=== PATIENT | female | born 2000 | race Caucasian/White ===

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

== ENCOUNTER 2022-01-25 16:27 | Emergency (ER) | payer MEDICAID, SELFPAY ==
[2022-01-25 16:35] VITALS: BP 131/89; PULSE 71; RESP 18; TEMP 36.6; O2SAT 98; BMI 27.1
--- NOTE | 2022-01-25 17:22 | CTR_ITS ---
PROCEDURE INFORMATION: Exam: CT Abdomen And Pelvis With Contrast Exam date and time: 01/25/2022 7:21 PM Age: 21 years old Clinical indication: Abdominal pain; Generalized; Patient HX: Lower sharp abd pain with shooting pain down right leg TECHNIQUE: Imaging protocol: Computed tomography of the abdomen and pelvis with contrast. Sagittal and coronal reformatted images were created and reviewed. Radiation optimization: All CT scans at this facility use at least one of these dose optimization techniques: automated exposure control; mA and/or kV adjustment per patient size (includes targeted exams where dose is matched to clinical indication); or iterative reconstruction. Contrast material: OMNI 300; Contrast volume: 95 ml; Contrast route: INTRAVENOUS (IV); COMPARISON: No relevant prior studies available. RADIATION DOSE METRICS: Total DLP (mGy-cm): 1468.63 FINDINGS: Lungs: Visualized lungs are clear. Pleural spaces: No pleural effusion. Heart: Visualized portions of the heart are unremarkable. Liver: The liver is unremarkable. Gallbladder and bile ducts: The gallbladder is unremarkable. No biliary ductal dilatation. Pancreas: The pancreas is unremarkable. No pancreatic ductal dilatation. Spleen: The spleen is unremarkable. Adrenal glands: The right and left adrenal glands are unremarkable. Kidneys and ureters: The right and left kidneys are unremarkable. The right and left ureters are unremarkable. Stomach and bowel: No obstruction. No mucosal thickening. Appendix: The appendix is visualized and is unremarkable. No findings to suggest acute appendicitis. Intraperitoneal space: No free intraperitoneal air. No ascites. No loculated fluid collections to suggest an abscess. Vasculature: No evidence for aortic aneurysm or aortic dissection. Hepatic veins, portal veins, splenic vein, and SMV are patent. Incidental note of a retroaortic left renal vein. Lymph nodes: No lymphadenopathy. Urinary bladder: The bladder is unremarkable. Reproductive: There is a tampon in the vagina. The uterus is unremarkable. Multiple subcentimeter follicles in both right and left ovaries. Bones/joints: No acute fracture. Soft tissues: The extra-abdominal soft tissues are unremarkable. CT/CT abdomen pelvis w con* [id number] IMPRESSION: 1. No acute abnormality in the abdomen or pelvis. 2. Incidental/nonacute findings are listed in the report.
--- NOTE | 2022-01-25 17:26 | ED_ITS ---
Documented by User: Krzysztof Urbano DO 01/26/22 05:51 HPI - Abdominal Pain General: Chief Complaint: Abdominal Pain Stated Complaint: right lower side stomach pain/back pain/leg pain Time Seen by Provider: 01/25/22 17:03 Source: patient Mode of arrival: ambulatory Limitations: no limitations History of Present Illness: 21-year-old female presents emergency room with complaint of abdominal pain refers the pain is right lower quadrant. She is currently on control. She is concerned she may have ovarian cyst she is currently having her period as well. States she is never had cramps like this today. In the past she has loss of appetite as well she denies any fever she did some nausea and vomiting overnight. MD elicited complaint: abdominal pain Onset (ago): hour(s) Pain Consistency: constant Location: RLQ Severity: moderate Quality: cramping Radiation: other (Right upper leg) Exacerbating factors: eating and movement Relieving factors: nothing Associated Symptoms: Reports GI cramping, diarrhea, nausea and poor appetite; Denies anorexia, belching, bloating, change in bowel habits, change in stool character, chills, coffee ground emesis, constipation, dyspepsia, dysuria, excessive flatus, fever(s), heartburn, hematochezia, hematuria, hematemesis, fecal incontinence, loose stools, melena, syncope and vomiting Related Data: Date of Last Menstrual Period: 08/03/21 Review of Systems Const: Denies: fever(s) or chills ENMT: Denies: throat pain, ear or mastoid pain, nasal discharge or nasal congestion Card: Denies: syncope Resp: Denies: dyspnea, productive cough or non-productive cough GI: Reports: nausea, diarrhea and GI cramping; Denies: vomiting, hematemesis, coffee ground emesis, heartburn, constipation, bloating, belching, excessive flatus, fecal incontinence, change in bowel habits, change in stool character, hematochezia or melena : Denies: dysuria or hematuria Skin/Breast: Denies: rash or pruritus [facility] ED PFSH: Medical History (Updated 01/25/22 @ 20:07 by Georgette Benjamin MD) History of asthma Hx of mycoplasma pneumonia Social History Smoking and tobacco status: never smoked Female Reproductive History: Date of last menstrual period: 08/03/21 Physical Exam Const: COMMON NORMALS: no acute distress GENERAL APPEARANCE: cooperative and comfortable ORIENTATION/CONSCIOUSNESS: Yes awake, Yes oriented to person, Yes oriented to place and Yes oriented to time HENMT: COMMON NORMALS: normocephalic, atraumatic and hearing grossly normal bilaterally HEAD & SCALP: normocephalic and atraumatic Neck/C-Spine: COMMON NORMALS: no JVD Resp: COMMON NORMALS: normal respiratory effort, No retractions, No use of accessory muscles and clear to auscultation bilaterally AUSCULTATION: clear to auscultation bilaterally Cardio: COMMON NORMALS: no JVD, regular rate, regular rhythm and No murmurs present (Cardio) RATE: regular rate RHYTHM: regular rhythm GI: COMMON NORMALS: No hepatosplenomegaly present AUSCULTATION: Yes normoactive bowel sounds PALPATION: Yes Tenderness to palpation present (GI) (McBurney's point) Details: RLQ, No Guarding due to palpation present (GI) and Yes No hepatosplenomegaly present : COMMON NORMALS: Yes no CVA tenderness BLADDER/KIDNEY EXAM: Yes no CVA tenderness Back/Pelvis: COMMON NORMALS: no CVA tenderness Extremity: COMMON NORMALS: normal to inspection, capillary refill normal, no clubbing, cyanosis or edema, no calf tenderness and no pedal edema Neuro: SENSORIUM/ORIENTATION: Yes oriented to person, Yes oriented to place and Yes oriented to time Skin: COMMON NORMALS: no rashes or lesions noted GENERAL SKIN EXAM: no rashes or lesions noted Course Vital Signs: Vital signs: Vital Signs Temperature 97.8 F 01/25/22 16:35 Pulse Rate 71 01/25/22 16:35 Respiratory Rate 18 01/25/22 16:35 Blood Pressure 131/89 01/25/22 16:35 Pulse Oximetry 98 01/25/22 16:35 MDM - Abdominal Pain Medical Decision Making Care signed out to Dr. Benjamin at change of shift. See final notes for diagnosis and disposition. Medical Records I reviewed the patient's medical records. Lab Data I reviewed the patient's lab results. : 01/25/22 16:09 01/25/22 16:09 Labs/Radiology: Radiology Impressions Abdomen/Pelvis CT 01/25/22 17:22 IMPRESSION: 1. No acute abnormality in the abdomen or pelvis. 2. Incidental/nonacute findings are listed in the report. Laboratory Results WBC 8.2 10^3/uL (4.5-13.0) 01/25/22 16:09 RBC 5.40 10^6/uL (4.1-5.3) H 01/25/22 16:09 Hgb 16.0 g/dL (11.5-15.3) H 01/25/22 16:09 Hct 46.7 % (37.0-47.0) 01/25/22 16:09 MCV 86.5 fl (81-99) 01/25/22 16:09 MCH 29.6 pg (28.0-34.0) 01/25/22 16:09 MCHC 34.3 g/dL (30.0-36.0) 01/25/22 16:09 RDW 11.7 % (12.1-15.1) L 01/25/22 16:09 Plt Count 387 10^3/cmm (130-400) 01/25/22 16:09 MPV 10.3 fL (7.4-10.4) 01/25/22 16:09 Neut % (Auto) 63.0 % 01/25/22 16:09 Lymph % (Auto) 29.7 % 01/25/22 16:09 [place] % (Auto) 6.3 % 01/25/22 16:09 Eos % (Auto) 0.7 % 01/25/22 16:09 Baso % (Auto) 0.2 % 01/25/22 16:09 Neut # (Auto) 5.14 10^3/uL (1.8-8.0) 01/25/22 16:09 Lymph # (Auto) 2.4 10^3/uL (1.5-6.5) 01/25/22 16:09 [place] # (Auto) 0.5 10^3/uL (0.2-0.9) 01/25/22 16:09 Eos # (Auto) 0.1 10^3/uL (0.0-0.8) 01/25/22 16:09 Baso # (Auto) 0.0 10^3/uL (0.0-0.1) 01/25/22 16:09 Nucleated RBC % (auto) 0 % 01/25/22 16:09 Nucleated RBCs # 0.0 /100WBC 01/25/22 16:09 Sodium 138 mmol/L (136-145) 01/25/22 16:09 Potassium 3.8 mmol/L (3.5-5.1) 01/25/22 16:09 Chloride 102 mmol/L (98-107) 01/25/22 16:09 Carbon Dioxide 21 mmol/L (22-29) L 01/25/22 16:09 Anion Gap 18.8 (5-19) 01/25/22 16:09 BUN 10 mg/dL (6-20) 01/25/22 16:09 Creatinine 0.6 mg/dL (0.5-0.9) 01/25/22 16:09 GFR Calculation 128.8 mL/min (90-130) 01/25/22 16:09 Glucose 86 mg/dL (65-115) 01/25/22 16:09 Calculated Osmolality 284 mOsm/kg (285-295) L 01/25/22 16:09 Calcium 9.9 mg/dL (8.5-10.5) 01/25/22 16:09 Total Bilirubin 0.4 mg/dL (0.15-1.2) 01/25/22 16:09 AST 16 U/L (0-32) 01/25/22 16:09 ALT 15 U/L (0-33) 01/25/22 16:09 Alkaline Phosphatase 53 IU/L (35-105) 01/25/22 16:09 Total Protein 8.2 g/dL (6.6-8.7) 01/25/22 16:09 Albumin 4.9 g/dL (3.5-5.2) 01/25/22 16:09 Globulin 3.3 g/dL (1.3-4.6) 01/25/22 16:09 HCG, Qual Negative (Negative) 01/25/22 16:09 Urine Color Yellow (Yellow) 01/25/22 18:12 Urine Appearance Clear (CLEAR) 01/25/22 18:12 Urine pH 6 (5-7) 01/25/22 18:12 Ur Specific [place] 1.015 (1.005-1.030) 01/25/22 18:12 Urine Protein Neg (Negative) 01/25/22 18:12 Urine Glucose (UA) Norm (Normal) 01/25/22 18:12 Urine Ketones Negative (Negative) 01/25/22 18:12 Urine Blood 2+ (Negative) H 01/25/22 18:12 Urine Nitrate Negative (Negative) 01/25/22 18:12 Urine Bilirubin Neg (Negative) 01/25/22 18:12 Urine Urobilinogen Norm mg/dL (Negative) 01/25/22 18:12 Ur Leukocyte Esterase Negative (Negative) 01/25/22 18:12 Urine RBC 0-4 /hpf (0-2) H 01/25/22 18:12 Urine WBC 0-4 /hpf (0-5) H 01/25/22 18:12 Ur Squamous Epith Cells 0-4 /hpf (0-5) H 01/25/22 18:12 Amorphous Sediment Not Reportable 01/25/22 18:12 Urine Bacteria Trace /hpf (NONE) 01/25/22 18:12 Discharge Plan Discharge Patient Disposition: Home Clinical Impression: Abdominal pain Qualifiers: Abdominal location: generalized Qualified Code(s): R10.84 - Generalized abdominal pain Condition: Stable Prescriptions: New ondansetron 4 mg tablet,disintegrating 4 mg PO Q6H PRN (Reason: nausea and vomiting) Qty: 14 0RF Naprosyn 500 mg tablet 500 mg PO BID PRN (Reason: pain) Qty: 20 0RF No Action hydroxyzine HCl 25 mg tablet 25 mg PO BID PRN (Reason: itching) Qty: 14 0RF albuterol sulfate 90 mcg/actuation HFA aerosol inhaler 2 puff INHALATION Q6H MDD 2 puff every 4 hrs. prn PRN (Reason: shortness of breath or wheezing) Qty: 13.4 1RF epinephrine [EpiPen 2-Jamir] 0.3 mg/0.3 mL auto-injector 0.3 mg IM Q10M PRN (Reason: anaphylaxis) Qty: 2 0RF Rx Instructions: for 2 doses norgestimate-ethinyl estradiol [Sprintec (28)] 0.25-35 mg-mcg tablet 1 tab PO DAILY Qty: 28 5RF Discharge Orders: Discharge ED (Routine); Ordered 01/25/22 Ordered By: Georgette Benjamin Referrals: Karina Messina FNP [Primary Care Provider] - 1-3 days Discharge Diet: Advance as tolerated Discharge Activity: Resume usual activity Patient Instructions: Abdominal Pain (ED) Coding Level of Care Code ED Director Business Systems for Chg Fwd Exam Comprehensive Documented by User: Georgette Benjamin MD 01/25/22 20:11 HPI - Abdominal Pain General: Chief Complaint: Abdominal Pain Stated Complaint: right lower side stomach pain/back pain/leg pain Time Seen by Provider: 01/25/22 17:03 [facility] ED PFSH: Medical History (Updated 01/25/22 @ 20:07 by Georgette Benjamin MD) History of asthma Hx of mycoplasma pneumonia Social History Smoking and tobacco status: never smoked Course Vital Signs: Vital signs: Vital Signs Temperature 97.8 F 01/25/22 16:35 Pulse Rate 71 01/25/22 16:35 Respiratory Rate 18 01/25/22 16:35 Blood Pressure 131/89 01/25/22 16:35 Pulse Oximetry 98 01/25/22 16:35 MDM - Abdominal Pain Medical Decision Making Care signed out to Dr. Benjamin at change of shift. See final notes for diagnosis and disposition. Took patient over at shift change patient's pain here is improved exam at discharge is benign CT scan shows no acute findings patient's blood work here is normal as well she is stable for discharge will place on Naprosyn and Zofran she is to follow-up with PCP and return if worsening she understands agrees to plan. Lab Data : 01/25/22 16:09 01/25/22 16:09 Labs/Radiology: Radiology Impressions Abdomen/Pelvis CT 01/25/22 17:22
[2022-01-25 18:23] LABS: Basophils % 0.2 %; Eosinophils # 0.1 10^3/uL (0.0-0.8); Eosinophils % 0.7 %; Hematocrit 46.7 % (37.0-47.0); Lymphocytes # 2.4 10^3/uL (1.5-6.5); Lymphocytes % 29.7 %; Mean Corpuscular HGB Conc 34.3 g/dL (30.0-36.0); Mean Corpuscular Hemoglobin 29.6 pg (28.0-34.0); Mean Corpuscular Volume 86.5 fl (81-99); Mean Platelet Volume 10.3 fL (7.4-10.4); Monocytes # 0.5 10^3/uL (0.2-0.9); Monocytes % 6.3 %; Neutrophils # 5.14 10^3/uL (1.8-8.0); Nucleated Red Blood Cells % 0 %; Platelet Count 387 10^3/cmm (130-400); Red Cell Distribution Width 11.7 % (12.1-15.1); White Blood Count 8.2 10^3/uL (4.5-13.0)
[2022-01-25 18:31] LABS: Add Urine Microscopic? YES; Bacteria Urine TRACE /hpf; Bilirubin Urine Neg (Negative); Blood Urine 2+ (Negative); Glucose Urine UA Norm (Normal); Ketones Urine Negative (Negative); Leukocyte Esterase Urine Negative (Negative); Nitrate Urine Negative (Negative); Protein Urine Neg (Negative); RBC Urine 0-4 /hpf (0-2); Specific Gravity, Urine 1.015 (1.005-1.030); Squamous Epithelial Cell Urine 0-4 /hpf (0-5); Urine Appearance Clear (CLEAR); Urine Color Yellow (Yellow); Urobilinogen Urine Norm (Negative); WBC Urine 0-4 /hpf (0-5); pH Urine 6 (5-7)
[2022-01-25 18:38] LABS: HCG, Serum Qual Negative (Negative)
[2022-01-25 19:01] LABS: Alanine Aminotransferase 15 U/L (0-33); Albumin Level 4.9 g/dL (3.5-5.2); Alkaline Phosphatase 53 IU/L (35-105); Anion Gap 18.8 (5-19); Aspartate Amino Transferase 16 U/L (0-32); Blood Urea Nitrogen 10 mg/dL (6-20); Calcium 9.9 mg/dL (8.5-10.5); Carbon Dioxide 21 mmol/L (22-29); Chloride 102 mmol/L (98-107); Creatinine Clr Calc Pharmacy 151.8333; Globulin 3.3 g/dL (1.3-4.6); Glomerular Filtration Rate 128.8 mL/min (90-130); Glucose 86 mg/dL (65-115); Osmolality Calculated 284 mOsm/kg (285-295); Potassium 3.8 mmol/L (3.5-5.1); Sodium 138 mmol/L (136-145); Total Bilirubin 0.4 mg/dL (0.15-1.2); Total Protein 8.2 g/dL (6.6-8.7)
--- NOTE | 2022-01-25 19:15 | PC.NURSE ---
REPORT GIVEN TO MIROSLAVA OBANDO ASSUMED CARE.
[2022-01-25] MEDS: iohexol 300 mg/mL 100 mL Btl IV (19:22)
[2022-01-25] MEDS: HYDROcodone-acetaminophen 7.5-325 mg Tablet 1 TAB PO (20:19)
== END 2022-01-25 20:22 | disposition home or self-care (01) ==
PROVIDERS: Family Medicine; Emergency Provider Emergency Medicine; PCP Nurse Practitioner Family
DX: R10.84 Generalized abdominal pain (principal)
CPT/HCPCS: 74177; 80053; 81001; 84703; 85025; 99283; Q9967

== ENCOUNTER → 2022-05-05 16:53 | Outpatient (BNVA) | payer OTHER, SELFPAY | PROVIDERS: PCP Nurse Practitioner Family; Visit Provider Emergency Medicine | DX: J00 Acute nasopharyngitis [common cold] (principal) | CPT/HCPCS: 87071; 87880 ==

== ENCOUNTER 2022-08-04 11:22 | Outpatient (CLI) | payer OTHER, SELFPAY ==
[2022-08-04 12:39] LABS: Blood Urine Neg (Negative); Glucose Urine UA Norm (Normal); Ketones Urine Negative (Negative); Nitrate Urine Negative (Negative); Protein Urine Neg (Negative); Urine Appearance Clear (CLEAR); Urine Color Yellow (Yellow); pH Urine 8 (5-7)
[2022-08-04 12:40] LABS: Add Urine Microscopic? YES; Bilirubin Urine Neg (Negative); Leukocyte Esterase Urine Trace (Negative); Sulfosalicylic Acid Urine Negative (Negative); Urobilinogen Urine Norm (Negative)
[2022-08-04 12:50] LABS: Add Urine Culture? No; Bacteria Urine TRACE /hpf; RBC Urine 0-4 /hpf (0-2)
[2022-08-04 13:36] LABS: Basophils % 0.3 %; Eosinophils # 0.1 10^3/uL (0.0-0.8); Eosinophils % 1.4 %; Hematocrit 41.7 % (37.0-47.0); Hemoglobin 14.2 g/dL (11.5-15.3); Lymphocytes % 20.6 %; Mean Corpuscular HGB Conc 34.1 g/dL (30.0-36.0); Mean Corpuscular Hemoglobin 29.6 pg (28.0-34.0); Mean Corpuscular Volume 87.1 fl (81-99); Mean Platelet Volume 10.1 fL (7.4-10.4); Monocytes # 0.7 10^3/uL (0.2-0.9); Monocytes % 7.2 %; Neutrophils # 6.83 10^3/uL (1.8-8.0); Neutrophils % 70.2 %; Nucleated Red Blood Cells % 0 %; Platelet Count 374 10^3/cmm (130-400); Red Blood Count 4.79 10^6/uL (4.1-5.3); Red Cell Distribution Width 12.1 % (12.1-15.1); White Blood Count 9.7 10^3/uL (4.5-13.0)
[2022-08-04 13:39] LABS: Erythrocyte Sedimentation Rate 2 mm/hr (0-15)
[2022-08-04 14:13] LABS: Alanine Aminotransferase 17 U/L (0-33); Albumin Level 4.2 g/dL (3.5-5.2); Alkaline Phosphatase 65 U/L (35-105); Anion Gap 13.9 (5-19); Aspartate Amino Transferase 13 U/L (0-32); Blood Urea Nitrogen 8 mg/dL (6-20); Calcium 9.3 mg/dL (8.5-10.5); Carbon Dioxide 24 mmol/L (22-29); Chloride 101 mmol/L (98-107); Glomerular Filtration Rate 128.8 mL/min (90-130); Glucose 85 mg/dL (65-115); Osmolality Calculated 278 mOsm/kg (285-295); Potassium 3.9 mmol/L (3.5-5.1); Sodium 135 mmol/L (136-145); Total Bilirubin 0.5 mg/dL (0.15-1.2); Total Protein 7.2 g/dL (6.6-8.7)
[2022-08-06 16:16] LABS: 30 KD IGG NON-REACTIVE; Lymes IGM WB 1.07 index
[2022-08-09 17:58] LABS: Francisella Tularensis DA <1:20 titer
[2022-08-10 17:43] LABS: Rocky Mountain IgG NOT DETECTED; Rocky Mountain IgM NOT DETECTED
== END 2022-08-04 11:23 | disposition home or self-care (01) ==
LOC: LAB 11:35
PROVIDERS: PCP Nurse Practitioner Family; Visit Provider Specialist
DX: H91.90 Unspecified hearing loss, unspecified ear (principal)
CPT/HCPCS: 80053; 81001; 81254; 84443; 85025; 85651; 86000; 86611; 86617; 86666; 86757; 86780

== ENCOUNTER 2022-09-08 19:32 | Emergency (ER) | payer OTHER, SELFPAY ==
[2022-09-08 19:36] VITALS: BP 151/95; PULSE 123; RESP 17; TEMP 36.4; O2SAT 100; BMI 22.4
[2022-09-08] MEDS: famotidine 20 mg/2 mL INJ 40 MG IVP (20:04)
[2022-09-08] MEDS: diphenhydrAMINE 50 mg/mL SDV 1mL IVP (20:04)
--- NOTE | 2022-09-08 20:05 | ED_ITS ---
HPI - Allergic Reaction General: Chief complaint: Allergic Reaction Stated complaint: possible allergic rxn Time Seen by Provider: 09/08/22 19:40 Source: patient Mode of arrival: ambulatory Limitations: no limitations History of Present Illness: HPI narrative: 21-year-old female states she has a peanut allergy states she was eating at a restaurant and believes that something she had eaten and had peanuts in it and had contact and started having feeling that she could not breathe along with flash and extreme pruritus she states that she has an EpiPen but did not have it on her she took 2 Benadryl's she had some slight improvement she is in minimal distress here she does have a rash no vomiting no diarrhea. Associated symptoms: Deny abdominal pain, nausea or vomiting Review of Systems Const: Denies: fever(s), chills, body aches or change in appetite Eyes: Denies: blurry vision or eye discomfort ENMT: Denies: throat pain or dental pain Card: Denies: chest pain Resp: Denies: dyspnea GI: Denies: abdominal pain, nausea, vomiting or diarrhea : Denies: dysuria Musc: Denies: neck pain or back pain Skin/Breast: Reports: rash and pruritus Neuro: Denies: headache(s) Psych: Denies: depression Mickey/Lymph: Denies: easy bruising All/Imm: Denies: urticaria PFSH ED PFSH: Medical History (Updated 09/08/22 @ 20:39 by Georgette Benjamin MD) History of asthma Hx of mycoplasma pneumonia Social History Smoking and tobacco status: never smoked Female Reproductive History: Date of last menstrual period: 08/03/21 Physical Exam Const: COMMON NORMALS: patient oriented x3 HENMT: COMMON NORMALS: normocephalic and atraumatic HEAD & SCALP: normoceph alic and atraumatic Eye: COMMON NORMALS: Equal, round and reactive pupils present and EOMs intact bilaterally PUPIL: Yes Equal, round and reactive pupils present Neck/C-Spine: COMMON NORMALS: full ROM and supple Chest: COMMONS NORMALS: normal inspection of the chest and normal palpation of entire chest wall Resp: COMMON NORMALS: normal respiratory effort, No retractions, No use of accessory muscles and clear to auscultation bilaterally AUSCULTATION: clear to auscultation bilaterally Cardio: COMMON NORMALS: regular rate, regular rhythm and No murmurs present (Cardio) RATE: regular rate RHYTHM: regular rhythm GI: COMMON NORMALS: Normal to inspection, nondistended, normoactive bowel sounds present, Soft to palpation, non-tender and no masses PALPATION: Yes Soft to palpation Extremity: COMMON NORMALS: normal to inspection and full ROM Neuro: COMMON NORMALS: patient oriented x3, moves all extremities and no focal motor deficits Psych: COMMON NORMALS: mental status grossly normal, Normal thought process present and cooperative THOUGHT PROCESS: Normal thought process present Skin: NARRATIVE SKIN EXAM: Ocular papular rash to trunk and extremities Course Vital Signs: Vital signs: Vital Signs Temperature 97.6 F 09/08/22 19:36 Pulse Rate 81 09/08/22 20:30 Respiratory Rate 16 09/08/22 20:30 Blood Pressure 122/78 09/08/22 20:30 Pulse Oximetry 98 09/08/22 20:30 Oxygen Delivery Me thod 09/08/22 19:36 MDM - Allergic Reaction Medical Decision Making Patient presents here with rash from allergic reaction she has no airway involvement she feels much improved here after IV meds she is stable for discharge she is to follow-up with PCP and return if worsening will prescribe her EpiPen for home. Discharge Plan Discharge Patient Disposition: Home Clinical Impression: Allergic reaction Condition: Stable Prescriptions: Continued EpiPen 2-Jamir 0.3 mg/0.3 mL auto-injector 0.3 mg IM Q10M PRN (Reason: anaphylaxis) Qty: 2 0RF Rx Instructions: for 2 doses No Action albuterol sulfate 90 mcg/actuation HFA aerosol inhaler 2 puff INHALATION Q6H MDD 2 puff every 4 hrs. prn PRN (Reason: shortness of breath or wheezing) Qty: 13.4 1RF norgestimate-ethinyl estradiol [Sprintec (28)] 0.25-35 mg-mcg tablet 1 tab PO DAILY Qty: 28 5RF Discharge Orders: Discharge ED (Routine); Ordered 09/08/22 Ordered By: Georgette Benjamin Referrals: Karina Messina, SUBSTATION ENGINEER [Primary Care Provider] - Discharge Diet: Advance as tolerated Discharge Activity: Resume usual activity Patient Instructions: General Allergic Reaction (ED) Coding Level of Care Code ED Lumber Material Handler for Chg Fwd Exam Comprehensive
[2022-09-08 20:12] VITALS: BP 130/77; PULSE 120; RESP 16; O2SAT 99
[2022-09-08] MEDS: LORazepam 1 mg Tablet PO (20:24)
[2022-09-08 20:30] VITALS: BP 122/78; PULSE 81; RESP 16; O2SAT 98
== END 2022-09-08 20:48 | disposition home or self-care (01) ==
PROVIDERS: Emergency Provider Emergency Medicine; PCP Nurse Practitioner Family
DX: T78.40XA Allergy, unspecified, initial encounter (principal)
CPT/HCPCS: 96374; 96375; 99284; J1200; J2930; J3490

== ENCOUNTER 2022-10-12 07:11 | Outpatient (CLI) | payer OTHER, SELFPAY ==
--- NOTE | 2022-10-12 07:25 | MR_ITS ---
WS: [id number] MRI HEAD WITHOUT CONTRAST WITH ATTENTION TO THE INTERNAL AUDITORY CANALS TECHNIQUE: Sagittal T1, T2 axial, T2 axial flair, axial susceptibility weighted imaging, axial diffus ion weighted images, and coronal T2 images were obtained. Pre T1 axial and coronal images. ADC and FS PGR images. Axial fiesta imaging. Patient refused IV contrast. CLINICAL INFORMATION: OTHER SPECIFIED HEARING LOSS COMPARISON: CT 2019 FINDINGS: No evidence of restricted diffusion to suggest acute ischemia. Ventricular system and basal cisterns are patent. No suspicious intracranial signal abnormalities. Normal ernst-white differentiation. No ev idence of mass or mass effect. No hydrocephalus. Normal posterior fossa. Normal vascular flow voids at the skull base. No extra-axial fluid collection s. No evidence of mass or mass effect. Paranasal sinuses and mastoid air cells well aerated. Normal p osterior nasopharynx. Normal parapharyngeal fat. No hemosiderin on the susceptibly weighted images. Proximal 7th and 8th cranial nerves are normal in appearance. Normal trigeminal nerve root entry zones. No evidence of IAC or CP angle mass. Patient re fused IV contrast. MR/MR iac's wo con [id number] IMPRESSION: 1. No evidence of restricted diffusion to suggest acute ischemia. 2. No suspicious intracranial signal abnormalities. Normal ernst-white differen tiation. 3. Noncontrast IACs are normal in appearance. Normal trigeminal nerve root ent ry zones. 4. Mastoid air cells are well aerated. Mild mucosal thickening RIGHT mastoid t ip. 5. Mild mucosal thickening in the ethmoid air cells. 6. No other acute findings.
== END 2022-10-12 07:12 | disposition home or self-care (01) ==
PROVIDERS: PCP Nurse Practitioner Family; Visit Provider Specialist
DX: H91.8X9 Other specified hearing loss, unspecified ear (principal)
CPT/HCPCS: 70551